=== PATIENT | female | born 1965 | race Caucasian/White ===

== ENCOUNTER 2021-03-21 21:12 | Inpatient (IN) | payer OTHER, SELFPAY ==
--- NOTE | ~2021-03-21 | CT_ITS ---
EXAMINATION: CT HEAD WITHOUT CONTRAST CLINICAL INFORMATION: Headache. Syncope. COMPARISON: CT head March 16, 2015 TECHNIQUE: Contiguous axial imaging was performed from the skull base to vertex without intravenous administration of contrast. Coronal and sagittal reformatted images are performed at CT scanner This CT examination was performed using dose optimization techniques as appropriate, variously including the following: *Automated exposure control *Adjustment of mA and/or kV according to patient size (this includes techniques or standardized protocols for targeted exams where dose is matched to indication/reason for exam; i.e. extremities or head) *Use of iterative reconstruction technique DLP: 578 mGy-cm FINDINGS: There is no evidence of acute intracranial hemorrhage or territorial infarction. No abnormal mass effect or midline shift is seen. Mark to white matter differentiation is well preserved. No extra-axial fluid collections are identified. The ventricles are normal in size. There is no abnormal attenuation within the brain parenchyma. The osseous structures and soft tissues are normal. The mastoid air cells and visualized portions of the paranasal sinuses are well aerated. CT/CT head/brain wo con IMPRESSION: No acute intracranial pathology.
--- NOTE | ~2021-03-21 | CT_ITS ---
EXAM: NONCONTRAST CT OF THE CHEST; NONCONTRAST CT OF THE ABDOMEN AND PELVIS INDICATION: Cough, leukocytosis, vomiting, abdominal pain, elevated white blood cell count and lactic acid, acute kidney injury COMPARISON: None TECHNIQUE: No IV contrast was utilized. Multidetector helical imaging was performed through the chest, abdomen, and pelvis. Coronal and sagittal reformatted images were created at the technologist workstation. DOSE LOWERING TECHNIQUES: This CT examination was performed using dose optimization techniques as appropriate, variously including the following: - Automated exposure control - Adjustment of mA and/or kV according to patient size (this includes techniques or standardized protocols for targeted exams were dose is matched to indication/reason for exam; i.e. extremities or head) - Use of iterative reconstruction technique DLP: 1294 mGy-cm FINDINGS: Chest: No regions of consolidation bilaterally. There is mild dependent atelectasis. No pneumothorax or pleural effusion. Visualized thyroid gland appears grossly unremarkable. No mediastinal lymphadenopathy is seen. Cardiac size is within normal limits; no pericardial effusion. No axillary lymphadenopathy is present. Mild degenerative endplate changes are noted in the thoracic spine. Abdomen/Pelvis: The liver appears mildly enlarged and is homogeneous in attenuation without intrahepatic biliary ductal dilatation. Patient is status post cholecystectomy. The unenhanced spleen, pancreas, and adrenal glands are within normal limits. The unenhanced kidneys are unremarkable without hydronephrosis. No renal or ureteral calculi are present. The urinary bladder is minimally distended and grossly unremarkable. Patient appears status post hysterectomy. Assessment for wall thickening in some segments of the colon is limited due to luminal collapse, though no significant pericolonic stranding is seen to strongly suggest a colitis. Foci of fat along the ascending and transverse colon are suggestive of lipomas. No evidence of bowel obstruction. The appendix is unremarkable. No free fluid or free air is identified. Scattered atherosclerotic calcifications are noted. No retroperitoneal or pelvic lymphadenopathy is seen. Status post right total hip arthroplasty. There is moderate to severe degenerative change of the left hip. Facet arthropathy is present in the lumbar spine. CT/CT abdomen pelvis wo con IMPRESSION: 1. No acute findings identified in the chest/abdomen/pelvis on noncontrast exam. 2. Mild hepatomegaly.
[2021-03-21 21:44] VITALS: BP 112/63; PULSE 91; RESP 16; TEMP 37; O2SAT 98; BMI 27.0
--- NOTE | 2021-03-21 21:50 | PC.NURSE ---
PT VOMITING BILE IN TRIAGE, CALLED OVER BY . WITNESSED PT PRESENT UNRESPONSIVE WITH EYES ROLLED BACK IN HEAD FOR LESS THAN 10 SECONDS. CALLED FOR BED AND ASSISTANCE. PT BROUGHT BACK TO ROOM FULLY ALERT IN WC.
--- NOTE | 2021-03-21 21:56 | ECG_ITS ---
Test Reason : NAUSEA AND VOMITING Blood Pressure : / mmHG Vent. Rate : 083 BPM Atrial Rate : 083 BPM P-R Int : 168 ms QRS Dur : 088 ms QT Int : 390 ms P-R-T Axes : 045 -29 011 degrees QTc Int : 458 ms Normal sinus rhythm Possible Left atrial enlargement Left ventricular hypertrophy Abnormal ECG When compared with ECG of 16-MAR-2015 14:17, No significant change was found Referred By: Dottie Shirley Electronically Signed By:AMOR HICKS MD
[2021-03-21] MEDS: ondansetron HCL 4 MG/2 ML VIAL IVPUSH (22:18)
--- NOTE | 2021-03-21 22:23 | ED_ITS ---
HPI - Nausea/Vomiting/Diarrhea General Chief complaint: Nausea/Vomiting/Diarrhea Stated complaint: VOMITTING Time Seen by Provider: 03/21/21 21:56 Source: patient and family Mode of arrival: ambulatory Limitations: no limitations History of Present Illness HPI Narrative: 55 y/o female with history of asthma, HTN, hypothyroidism, abdominal ulcer s/p cauterization, s/p cholecystectomy, anxiety, s/p ovarian surgery who presents to the ER with nausea, vomiting and abdominal pain that started today. She reports a posterior headache as well. She vomited several times today and had 1 episode of non-bloody diarrhea as well. She denies fever, chills, blood in her vomitus or stool. She denies possibility of food bourne illness. No one else at home is ill. She also reports a mild cough and SOB which she attributes to her chronic asthma. No sputum. She is fully vaccinated against COVID. No urinary symptoms. She reports her abdominal pain is dull, constant and located in her epigastric and central abdomen. It does not radiate and is worse with vomiting. She was vomiting and dry heaving in the waiting room. witnessed brief syncopal episode in the waiting room. She lives in [place] and is here visiting. MD elicited complaint: nausea, vomiting and abdominal pain Onset (ago): hour(s) (8) Description of vomiting: food contents and watery Description of diarrhea: semi-solid Associated nausea: Yes Associated abdominal pain: Yes Location of pain: epigastric and periumbilical Pain consistency: constant Severity: moderate Quality: aching Exacerbating factors: vomiting Relieving factors: none Associated symptoms: cough, headaches, loss of appetite, malaise, nausea/vomiting, syncope, weakness and anxiety Related Data Allergies Allergy/AdvReac Type Severity Reaction Status Date / Time acetaminophen [From PERCOCET] Allergy Unknown DIFFICULTY Verified 03/21/21 23:42 BREATHING oxycodone [From PERCOCET] Allergy Unknown DIFFICULTY Verified 03/21/21 23:42 BREATHING, crawling sensation Review of Systems Review of Systems: Constitutional: No Fever, No Chills ENT/Mouth: No sore throat, No Rhinorrhea, No Swallowing Difficulty Eyes: No Eye Pain, No Swelling, No Redness Cardiovascular: No Chest Pain, + SOB, No Orthopnea, No Edema Respiratory: +Cough, No Sputum, No Wheezing, No dyspnea Gastrointestinal: + Nausea, + Vomiting, + Diarrhea, + abdominal Pain, No Hematochezia, No Melena Genitourinary: No Dysuria, No Urinary Frequency, No Hematuria Musculoskeletal: No joint pain, No Myalgias Skin: No Skin Lesions, No rash Neuro: + Weakness, No Numbness, + Dizziness, + Headache Psych: No Anxiety/Panic, No Depression Heme/Lymph: No Bruising, No Lymphadenopathy Endocrine: No Polyuria, No Polydipsia Gastrointestinal: Gastrointestinal: Reports nausea PMFSH Past Medical History Attestation statement: The following information was validated with the patient. Medical History (Updated 03/22/21 @ 00:15 by TAPAN Jarrell) Asthma Hypertension Social History Social History Advance Directives: No Advance Directives Information Provided: Yes Physical Exam Vital Signs: Vital Signs: Last Vital Signs Temp 98.3 F 03/21/21 23:41 Pulse 74 03/21/21 23:41 Resp 16 03/21/21 23:41 BP 115/58 L 03/21/21 23:41 Pulse Ox 98 03/21/21 23:41 Body Mass Index 27.0 Appearance: Alert, middle aged woman sitting up in bed, dry heaving, diaph oretic. Eyes: Pupils equal, round and reactive to light. ENT: Pharynx normal. Neck: Normal inspection. Neck supple. CVS: Tachycardic, regular rhythm. Pulses normal. Respiratory: No respiratory distress. Breath sounds normal. Abdomen: Soft wtih mild epigastric tenderness, no rebound or guarding, normal +BS x4 Skin: Skin warm with slight diaphoresis. Normal skin color. Normal skin turgor. No rashes. Extremities: No lower extremity edema. Neuro: Oriented X 3. No motor deficit. No sensory deficit. Anxious Course Course Course Narrative: 55 y/o female presenting with acute onset of N/V and abdominal pain that started this afternoon. No fever, chills. She had a brief witnessed syncopal episode in the waiting room, likely vasovagal. She is dry heaving upon assessment. Afebrile on arrival with stable VS. Central abdominal tenderness noted. She is s/p cholecystectomy. Will get labs, EKG and start IVF and Zofran. Will check orthostatic VS after 1L IVF. Reevaluation(s) Reevaluation #1: 10:55 pm - labs resulting with significant leukocytosis of 24.7K, could be reactive from profuse vomiting. Denies marijuana use or ETOH use. Will proceed with CT scans for further evaluation and r/o source of infection. Not tachycardic or febrile at this time. Will add blood cultures and empiric IV Zosyn for intraabdominal coverage. 2nd liter IVF ordered. Reevaluation #2: 11:15 pm - patient has an PASCALE with BUN/Cr 18/2.04 from a normal baseline back in 2014. This is most likely due to dehydration and GI losses. Will continue with IV fluids, awaiting CT scans. Reevaluation #3: 12:10 am - CT scans are unremarkable. No source of infection identifWill contact hospitalist for admission for probable gastroenteritis and PASCALE. 12:44 - spoke with Dr. Palacios who will admit. MDM - Nausea/Vomiting/Diarrhea Differential Diagnosis Differential diagnosis: Likely traveler's diarrhea, food poisoning, gastroenteritis, clostridium difficile infection, drug-induced nausea and vomiting and dehydration Medical Records Attestation: I reviewed the patient's medical records. Lab Data Attestation: I reviewed the patient's lab results. Result diagrams: 03/21/21 22:14 03/21/21 22:14 Labs: Lab Results 03/21/21 03/21/21 03/21/21 Range/Units 22:14 22:14 22:14 WBC 24.7 H (4.8-10.8) X10*3/uL RBC 4.85 (4.20-5.50) X10*6/uL Hgb 15.2 (12.0-16.0) g/dl Hct 44.4 (37-47) % MCV 91.5 (80-98) fL MCH 31.3 (27.0-33.0) pg MCHC 34.2 (31.0-35.0) g/dl RDW 12.8 (11.0-16.0) % Plt Count 331 (160-400) X10*3/uL MPV 9.6 (9.4-12.3) fL Immature Gran % (Auto) 0.5 H (0.0-0.4) % Neut % (Auto) 72.8 (45-73) % Lymph % (Auto) 17.3 L (20-40) % Woods % (Auto) 8.4 (2-11) % Eos % (Auto) 0.6 (0-4) % Baso % (Auto) 0.4 (0-2) % Lymph # (Auto) 4.3 (1.2-4.9) X10*3/uL Woods # (Auto) 2.1 H (0.1-1.2) X10*3/uL Eos # (Auto) 0.2 (0.0-0.4) X10*3/uL Baso # (Auto) 0.1 (0.0-0.2) X10*3/uL Abs Immat Gran (auto) 0.13 H (0.00-0.03) X10*3/uL Absolute Neuts (auto) 18.0 H (2.0-8.3) X10*3/uL Absolute Nucleated RBC 0.000 (0.0-0.012) X10*3/uL Nucleated RBC % (auto) 0.0 (0.0-0.2) /100WBC Sodium 141 (135-145) mmol/L Potassium 3.6 (3.3-5.1) mmol/L Chloride 104 (96-108) mmol/L Carbon Dioxide 21 L (22-29) mmol/L Anion Gap 20 (12-20) BUN 18 H (9-16) mg/dL Creatinine 2.04 H (0.5-1.4) mg/dL Estim Creat Clear Calc 33.9 Estimated GFR 25 Random Glucose 149 H (60-115) mg/dL Lactic Acid 3.4 H* (0.5-2.0) mmol/L Calcium 10.6 H (8.4-10.2) mg/dL Magnesium 2.1 (1.6-2.6) mg/dL Total Bilirubin 1.3 H (0.0-1.0) mg/dL Direct Bilirubin 0.4 (0.0-0.5) mg/dL AST 16 (5-31) U/L ALT 11 (0-31) U/L Alkaline Phosphatase 155 H (39-117) U/L Total Protein 7.7 (6.5-8.0) g/dL Albumin 5.0 (3.5-5.0) g/dL Lipase 92 H (8-78) U/L Urine Color Urine Appearance Urine pH (5.0-8.0) Ur Specific [place] (1.005-1.025) Urine Protein (NEG-TRACE) MG/DL Urine Glucose (UA) (NEG) MG/DL Urine Ketones (NEG) MG/DL Urine Blood (NEG) Urine Nitrite (NEG) Ur Leukocyte Esterase (NEG) Ethyl Alcohol mg/dL COVID-19 (DEIRDRE) (Negative) COVID-19 Clin Com 03/21/21 03/21/21 03/22/21 Range/Units 22:14 22:14 00:28 WBC (4.8-10.8) X10*3/uL RBC (4.20-5.50) X10*6/uL Hgb (12.0-16.0) g/dl Hct (37-47) % MCV (80-98) fL MCH (27.0-33.0) pg MCHC (31.0-35.0) g/dl RDW (11.0-16.0) % Plt Count (160-400) X10*3/uL MPV (9.4-12.3) fL Immature Gran % (Auto) (0.0-0.4) % Neut % (Auto) (45-73) % Lymph % (Auto) (20-40) % Woods % (Auto) (2-11) % Eos % (Auto) (0-4) % Baso % (Auto) (0-2) % Lymph # (Auto) (1.2-4.9) X10*3/uL Woods # (Auto) (0.1-1.2) X10*3/uL Eos # (Auto) (0.0-0.4) X10*3/uL Baso # (Auto) (0.0-0.2) X10*3/uL Abs Immat Gran (auto) (0.00-0.03) X10*3/uL Absolute Neuts (auto) (2.0-8.3) X10*3/uL Absolute Nucleated RBC (0.0-0.012) X10*3/uL Nucleated RBC % (auto) (0.0-0.2) /100WBC Sodium (135-145) mmol/L Potassium (3.3-5.1) mmol/L Chloride (96-108) mmol/L Carbon Dioxide (22-29) mmol/L Anion Gap (12-20) BUN (9-16) mg/dL Creatinine (0.5-1.4) mg/dL Estim Creat Clear Calc Estimated GFR Random Glucose (60-115) mg/dL Lactic Acid (0.5-2.0) mmol/L Calcium (8.4-10.2) mg/dL Magnesium (1.6-2.6) mg/dL Total Bilirubin (0.0-1.0) mg/dL Direct Bilirubin (0.0-0.5) mg/dL AST (5-31) U/L ALT (0-31) U/L Alkaline Phosphatase (39-117) U/L Total Protein (6.5-8.0) g/dL Albumin (3.5-5.0) g/dL Lipase (8-78) U/L Urine Color YELLOW Urine Appearance HAZY Urine pH 6.0 (5.0-8.0) Ur Specific [place] 1.025 (1.005-1.025) Urine Protein 3+ H (NEG-TRACE) MG/DL Urine Glucose (UA) NEG (NEG) MG/DL Urine Ketones NEG (NEG) MG/DL Urine Blood 1+ H (NEG) Urine Nitrite NEG (NEG) Ur Leukocyte Esterase NEG (NEG) Ethyl Alcohol < 10 mg/dL COVID-19 (DEIRDRE) Negative (Negative) COVID-19 Clin Com See Note ECG Data Attestation: I personally reviewed and interpreted this ECG as follows: ECG interpretation date: 03/21/21 ECG interpretation time: 22:41 Interpretation: normal sinus rhythm, HR 83 bpm, WA interval normal, No ST segment elevation or depression Critical Care Time Critical Care Time Critical Care Time: Yes Total Critical Care Time: 42 Attestation: I have personally provided critical care time exclusive of time spent on separately billable procedures. Time includes review of lab data, radio logy results, discussion with consultants, and monitoring for potential decompensation. Intervention performed as documented. Discharge Plan Discharge Clinical Impression: PASCALE (acute kidney injury), Gastroenteritis Syncope Qualifiers: Syncope type: unspecified Qualified Code(s): R55 - Syncope and collapse Patient Disposition: Admitted As Inpatient
[2021-03-21 22:26] LABS: Basophils Absolute Auto 0.1 X10*3/uL (0.0-0.2); Basophils Percent Auto 0.4 % (0-2); Eosinophils Absolute Auto 0.2 X10*3/uL (0.0-0.4); Eosinophils Percent Auto 0.6 % (0-4); Hematocrit 44.4 % (37-47); Hemoglobin 15.2 g/dl (12.0-16.0); Imm Gran Abs Auto 0.13 X10*3/uL (0.00-0.03); Imm Gran Pct Auto 0.5 % (0.0-0.4); Lymphocytes Absolute Auto 4.3 X10*3/uL (1.2-4.9); Lymphocytes Percent Auto 17.3 % (20-40); MANUAL DIFF FLAG NO; Mean Corpuscular HGB Conc 34.2 g/dl (31.0-35.0); Mean Corpuscular Hemoglobin 31.3 pg (27.0-33.0); Mean Corpuscular Volume 91.5 fL (80-98); Mean Platelet Volume 9.6 fL (9.4-12.3); Monocytes Absolute Auto 2.1 X10*3/uL (0.1-1.2); Monocytes Percent Auto 8.4 % (2-11); Neutrophils Percent Auto 72.8 % (45-73); Platelet Count 331 X10*3/uL (160-400); Red Blood Count 4.85 X10*6/uL (4.20-5.50); Red Cell Distribution Width 12.8 % (11.0-16.0); SCAN SMEAR FLAG 1; White Blood Count 24.7 X10*3/uL (4.8-10.8)
[2021-03-21 22:38] LABS: COVID-19 Test Negative (Negative)
[2021-03-21 22:46] LABS: Lactic Acid 3.4 mmol/L (0.5-2.0)
[2021-03-21] MEDS: 0.9 % Sodium Chloride 1,000 ML 999 ML IVCONT ×2 (22:46→23:42)
[2021-03-21 22:54] LABS: Alanine Aminotransferase 11 U/L (0-31); Alkaline Phosphatase 155 U/L (39-117); Anion Gap 20 (12-20); Aspartate Amino Transferase 16 U/L (5-31); Bilirubin Direct 0.4 mg/dL (0.0-0.5); Bilirubin Total 1.3 mg/dL (0.0-1.0); Blood Urea Nitrogen 18 mg/dL (9-16); Calcium 10.6 mg/dL (8.4-10.2); Carbon Dioxide 21 mmol/L (22-29); Chloride 104 mmol/L (96-108); Creatinine Clr Calc Pharmacy 33.9; Estimated Glomerular Filt Rate 25; Glucose Random 149 mg/dL (60-115); Lipase 92 U/L (8-78); Magnesium 2.1 mg/dL (1.6-2.6); Potassium 3.6 mmol/L (3.3-5.1); Sodium 141 mmol/L (135-145); Total Protein 7.7 g/dL (6.5-8.0)
[2021-03-21 22:55] LABS: Ethanol < 10 mg/dL
[2021-03-21 23:41] VITALS: BP 115/58; PULSE 74; RESP 16; TEMP 36.8; O2SAT 98
--- NOTE | 2021-03-21 23:58 | PC.NURSE ---
zosyn stopped when discovery that cultures were not ordered or drawn. provider placed order. will rstart zosyn after cultures are drawn.
--- NOTE | 2021-03-22 00:02 | PC.NURSE ---
CARE AND REPORT HANDED OVER FROM JUSTYNA AT 23:00
[2021-03-22] MEDS: Piperacillin Sodium/Tazobactam 3.375 GM in 0.9 % Sodium Chloride 50 ML IV ×2 (00:14→06:54)
[2021-03-22] MEDS: Morphine Sulfate 4 MG/ML CARTRIDGE IVPUSH (00:14)
[2021-03-22 00:25] LABS: Reflex Lactate? Lactic Acid Added
[2021-03-22 00:37] LABS: Glucose Urine UA NEG (NEG); Leukocyte Esterase Urine NEG (NEG); Nitrite Urine NEG (NEG); Specific Gravity - Urine 1.025 (1.005-1.025); Urine Blood 1+ (NEG); Urine Ketones NEG (NEG); Urine Protein 3+ MG/DL (NEG-TRACE)
[2021-03-22 00:38] LABS: Appearance Urine HAZY; Color Urine YELLOW
[2021-03-22 00:53] LABS: Bacteria Urine TRACE /LPF; Mucus Urine 2+ /LPF; Squamous Epithelial Cell Urine 3+ /LPF; WBC Urine 0 /HPF (0-4)
[2021-03-22 01:14] LABS: MANUAL DIFF FLAG NO
[2021-03-22 01:15] LABS: Basophils Absolute Auto 0.1 X10*3/uL (0.0-0.2); Basophils Percent Auto 0.5 % (0-2); Eosinophils Absolute Auto 0.1 X10*3/uL (0.0-0.4); Eosinophils Percent Auto 0.5 % (0-4); Hematocrit 38.7 % (37-47); Imm Gran Abs Auto 0.06 X10*3/uL (0.00-0.03); Imm Gran Pct Auto 0.5 % (0.0-0.4); Lymphocytes Absolute Auto 1.8 X10*3/uL (1.2-4.9); Lymphocytes Percent Auto 13.7 % (20-40); Mean Corpuscular HGB Conc 33.6 g/dl (31.0-35.0); Mean Corpuscular Hemoglobin 31.2 pg (27.0-33.0); Mean Corpuscular Volume 92.8 fL (80-98); Mean Platelet Volume 9.7 fL (9.4-12.3); Monocytes Absolute Auto 0.9 X10*3/uL (0.1-1.2); Monocytes Percent Auto 6.5 % (2-11); Neutrophils Absolute Auto 10.5 X10*3/uL (2.0-8.3); Neutrophils Percent Auto 78.3 % (45-73); Platelet Count 264 X10*3/uL (160-400); Red Blood Count 4.17 X10*6/uL (4.20-5.50); Red Cell Distribution Width 12.9 % (11.0-16.0); White Blood Count 13.3 X10*3/uL (4.8-10.8)
[2021-03-22 01:17] LABS: ~Lactic Acid-LAB USE ONLY 2.4 mmol/L (0.5-2.0)
[2021-03-22 01:43] LABS: Anion Gap 17 (12-20); Blood Urea Nitrogen 17 mg/dL (9-16); Calcium 8.9 mg/dL (8.4-10.2); Carbon Dioxide 20 mmol/L (22-29); Chloride 108 mmol/L (96-108); Creatinine Clr Calc Pharmacy 41.7; Estimated Glomerular Filt Rate 32; Glucose Random 157 mg/dL (60-115); Potassium 3.8 mmol/L (3.3-5.1); Sodium 141 mmol/L (135-145)
[2021-03-22 01:49] LABS: Troponin-I High Sensitivity 14.9 ng/L (<3.5-17.0)
--- NOTE | 2021-03-22 02:38 | P.HPHOSP_ITS ---
History of Present Illness Date of Service: 03/22/21 Chief Complaint: Nausea and vomiting 55-year-old female with a past medical history of hypertension, hyperlipidemia, hypothyroidism presented to the hospital with a chief complaint of nausea vomiting. Patient reports that her symptoms started this afternoon; follow-up but she had multiple episodes profuse vomiting. Denies any blood in the vomitus. Had 1 episode of loose stool. Complains of epigastric discomfort. Denies any fever chills cough. Mentioned that she had dizziness. Subsequently came to the ER for further evaluation. While waiting in the ER patient had a brief episode of syncope; per patient's patient rolled her eyes to the back and lost consciousness for about 15 seconds; denies any fall. Also mentioned that patient was mildly confused after she came back. Denies any numbness or tingling. Patient denies taking excessive [id number] pain medications; denies eating old or stale food. Patient reports that she had history of cholecystectomy Review of all other systems is negative except mentioned above ER course: Per ER team patient noted to have epigastric tenderness, CT head and CT abdomen showed no acute findings, exam was nonfocal, lab showed lactic acidosis, leukocytosis, elevated creatinine; patient qualified for sepsis criteria; given a dose of Zosyn. Admitted to the hospital for further management. [facility] Medical History (Updated 03/22/21 @ 00:15 by TAPAN Jarrell) Asthma Hypertension Social History Household Members: Spouse Housing: House Patient Tobacco Use Status: Current everyday Tobacco user Tobacco use type: Cigarette Smoked in Last 30 Days: Yes Use of substances other than those prescribed or required for medical reasons: No Currently Displaying Signs/Symptoms of Drug Intoxication Withdrawal: No Any prior treatment program specific to substance use: No Have you been hit, kicked, punched, or otherwise hurt by someone within the past year? If so, by whom?: No Do you feel safe in your current relationship?: No Is there a partner from a previous relationship who is making you feel unsafe now?: No Are you made to feel afraid or neglected: No Advance Directives: No Advance Directives Information Provided: Yes Do you have thoughts of harming others: None Do you have a plan to hurt others: No Plan Patient : No : No Poor oral hygiene: No Meds Allergies Allergy/AdvReac Type Severity Reaction Status Date / Time acetaminophen [From PERCOCET] Allergy Unknown DIFFICULTY Verified 03/21/21 23:42 BREATHING oxycodone [From PERCOCET] Allergy Unknown DIFFICULTY Verified 03/21/21 23:42 BREATHING, crawling sensation Active Medications: Current Medications Generic Name Dose Route Start Last Admin Trade Name Freq PRN Reason Stop Dose Admin Acetaminophen 650 mg 03/22/21 00:45 Acetaminophen 325 Mg Tablet PO Q6H PRN Pain, Mild (Pain Scale 1-3) Heparin Sodium (Porcine) 5,000 unit 03/22/21 00:45 Heparin Sodium,Porcine 5,000 Unit/Ml Vial SUBCUT Q8H JEANA Dextrose/Sodium Chloride 1,000 mls @ 100 mls/hr 03/22/21 00:45 D51/2ns IVCONT .Q10H JEANA Piperacillin Sod/Tazobactam 50 mls @ 100 mls/hr 03/22/21 05:00 Sod 3.375 gm/ Sodium Chloride IV Q6H JEANA Melatonin 6 mg 03/22/21 00:45 Melatonin 3 Mg Tablet PO BEDTIME PRN Insomnia Pharmacy Consult 1 each 03/21/21 22:58 Consult Rx Perform Med Rec MISCELLANE ONCE PRN Consult order Sodium Chloride 3 ml 03/22/21 08:00 0.9 % Sodium Chloride Flush 3 Ml Syringe IVFLUSH [facility] Home Medications Medication Instructions Recorded Confirmed Last Taken Type Flovent HFA 2 puff INHALATION BID 03/22/21 03/22/21 Unknown History fluticasone propionate 1 - 2 spray INTRANASAL DAILY 03/22/21 03/22/21 Unknown History levothyroxine 1 tab PO DAILY 03/22/21 03/22/21 03/21/21 History lisinopril 1 tab PO DAILY 03/22/21 03/22/21 03/21/21 History rosuvastatin 1 tab PO DAILY 03/22/21 03/22/21 03/21/21 History Physical Exam Vital Signs and Narrative: Vital Signs: Last Vital Signs Temp 98.3 F 03/21/21 23:41 Pulse 74 03/21/21 23:41 Resp 16 03/21/21 23:41 BP 115/58 L 03/21/21 23:41 Pulse Ox 98 03/21/21 23:41 Body Mass Index 27.0 Gen: Appears be in no acute distress HEENT: NCAT, Moist mucosa. Pulmonary: Vesicular breath sounds, fair air entry CVS: Normal S1-S2 Abdomen: BS+, Soft, tender in the epigastrium; no guarding no rigidity Extremities: Warm well perfused Neuro: Alert and awake. Results Labs CBC and Chem 7: 03/22/21 07:41 03/22/21 07:41 Labs: Laboratory Results - last 24 hr 03/21/21 03/21/21 03/21/21 22:14 22:14 22:14 MCV 91.5 MCH 31.3 MCHC 34.2 RDW 12.8 Plt Count 331 MPV 9.6 Immature Gran % (Auto) 0.5 H Neut % (Auto) 72.8 Lymph % (Auto) 17.3 L [place] % (Auto) 8.4 Eos % (Auto) 0.6 Baso % (Auto) 0.4 Lymph # (Auto) 4.3 [place] # (Auto) 2.1 H Eos # (Auto) 0.2 Baso # (Auto) 0.1 Abs Immat Gran (auto) 0.13 H Absolute Neuts (auto) 18.0 H Absolute Nucleated RBC 0.000 Nucleated RBC % (auto) 0.0 Anion Gap 20 Estim Creat Clear Calc 33.9 Estimated GFR 25 Random Glucose 149 H Lactic Acid 3.4 H* Lactic Acid Fup @ 2Hr Calcium 10.6 H Magnesium 2.1 Total Bilirubin 1.3 H Direct Bilirubin 0.4 AST 16 ALT 11 Alkaline Phosphatase 155 H Troponin I High Sens Total Protein 7.7 Albumin 5.0 Lipase 92 H Urine Color Urine Appearance Urine pH Ur Specific [place] Urine Protein Urine Glucose (UA) Urine Ketones Urine Blood Urine Nitrite Ur Leukocyte Esterase Urine RBC Urine WBC Ur Squamous Epith Cells Urine Bacteria Other Casts Urine Mucus Ethyl Alcohol COVID-19 (DEIRDRE) COVID-19 Clin Com 03/21/21 03/21/21 03/22/21 22:14 22:14 00:28 MCV MCH MCHC RDW Plt Count MPV Immature Gran % (Auto) Neut % (Auto) Lymph % (Auto) [place] % (Auto) Eos % (Auto) Baso % (Auto) Lymph # (Auto) [place] # (Auto) Eos # (Auto) Baso # (Auto) Abs Immat Gran (auto) Absolute Neuts (auto) Absolute Nucleated RBC Nucleated RBC % (auto) Anion Gap Estim Creat Clear Calc Estimated GFR Random Glucose Lactic Acid Lactic Acid Fup @ 2Hr Calcium Magnesium Total Bilirubin Direct Bilirubin AST ALT Alkaline Phosphatase Troponin I High Sens Total Protein Albumin Lipase Urine Color YELLOW Urine Appearance HAZY Urine pH 6.0 Ur Specific [place] 1.025 Urine Protein 3+ H Urine Glucose (UA) NEG Urine Ketones NEG Urine Blood 1+ H Urine Nitrite NEG Ur Leukocyte Esterase NEG Urine RBC 1-4 Urine WBC 0 Ur Squamous Epith Cells 3+ Urine Bacteria TRACE Other Casts 1-4 Urine Mucus 2+ Ethyl Alcohol < 10 COVID-19 (DEIRDRE) Negative COVID-19 Clin Com See Note 03/22/21 03/22/21 03/22/21 00:51 01:08 01:08 MCV 92.8 MCH 31.2 MCHC 33.6 RDW 12.9 Plt Count 264 MPV 9.7 Immature Gran % (Auto) 0.5 H Neut % (Auto) 78.3 H Lymph % (Auto) 13.7 L [place] % (Auto) 6.5 Eos % (Auto) 0.5 Baso % (Auto) 0.5 Lymph # (Auto) 1.8 [place] # (Auto) 0.9 Eos # (Auto) 0.1 Baso # (Auto) 0.1 Abs Immat Gran (auto) 0.06 H Absolute Neuts (auto) 10.5 H Absolute Nucleated RBC 0.000 Nucleated RBC % (auto) 0.0 Anion Gap 17 Estim Creat Clear Calc 41.7 Estimated GFR 32 Random Glucose 157 H Lactic Acid Lactic Acid Fup @ 2Hr 2.4 H* Calcium 8.9 D Magnesium Total Bilirubin Direct Bilirubin AST ALT Alkaline Phosphatase Troponin I High Sens Total Protein Albumin Lipase Urine Color Urine Appearance Urine pH Ur Specific [place] Urine Protein Urine Glucose (UA) Urine Ketones Urine Blood Urine Nitrite Ur Leukocyte Esterase Urine RBC Urine WBC Ur Squamous Epith Cells Urine Bacteria Other Casts Urine Mucus Ethyl Alcohol COVID-19 (DEIRDRE) COVID-19 Clin Com 03/22/21 01:08 MCV MCH MCHC RDW Plt Count MPV Immature Gran % (Auto) Neut % (Auto) Lymph % (Auto) [place] % (Auto) Eos % (Auto) Baso % (Auto) Lymph # (Auto) [place] # (Auto) Eos # (Auto) Baso # (Auto) Abs Immat Gran (auto) Absolute Neuts (auto) Absolute Nucleated RBC Nucleated RBC % (auto) Anion Gap Estim Creat Clear Calc Estimated GFR Random Glucose Lactic Acid Lactic Acid Fup @ 2Hr Calcium Magnesium Total Bilirubin Direct Bilirubin AST ALT Alkaline Phosphatase Troponin I High Sens 14.9 Total Protein Albumin Lipase Urine Color Urine Appearance Urine pH Ur Specific [place] Urine Protein Urine Glucose (UA) Urine Ketones Urine Blood Urine Nitrite Ur Leukocyte Esterase Urine RBC Urine WBC Ur Squamous Epith Cells Urine Bacteria Other Casts Urine Mucus Ethyl Alcohol COVID-19 (DEIRDRE) COVID-19 Clin Com Imaging Radiologist's Impressions: Impressions Abdomen/Pelvis CT 03/21/21 22:58 IMPRESSION: 1. No acute findings identified in the chest/abdomen/pelvis on noncontrast exam. 2. Mild hepatomegaly. Chest CT 03/21/21 23:00 IMPRESSION: 1. No acute findings identified in the chest/abdomen/pelvis on noncontrast exam. 2. Mild hepatomegaly. Head CT 03/21/21 23:07 IMPRESSION: No acute intracranial pathology. Assessment and Plan (1) PASCALE (acute kidney injury): Status: Acute 55-year-old female with a past medical history of hypertension, hyper lipidemia, hypothyroidism presented to the hospital with a chief complaint of nausea/vomiting. Noted to have PASCALE and possible gastroenteritis. Patient also had an episode of syncope. Admitted for further management. Syncope: Likely vasovagal. Patient was briefly postictal. Exam nonfocal. CT head showed no acute findings. EKG nonischemic. Normal sinus rhythm. Telemetry cycle cardiac enzymes echocardiogram Orthostatic vitals PASCALE: Likely prerenal in the setting of multiple episodes of vomiting. IV hydration. Avoid nephrotoxins. Hold home lisinopril. Nausea/vomiting/abdominal discomfort: Patient reports remote history of peptic ulcer disease. Denies any blood in the vomitus. Likely gastroenteritis. Supportive care. IV fluids. Advanced diet as tolerated Patient qualified for sepsis criteria, received empiric Zosyn. Will continue until the cultures are back. Lactic acidosis: IV fluids Hypertension: Patient's blood pressure on the soft side. Hold home antihypertensives. History of hypothyroidism: Continue levothyroxine DVT prophylaxis: [facility] Code status: Full code Quality Stroke Does the patient have a stroke diagnosis?: No VTE Prior VTE?: No VTE Risk Level:: Medical - moderate - high VTE Device Contraindication: Treatment Not Indicated VTE Drug Contraindication: N/A - Med Ordered
[2021-03-22 02:56] LABS: Reflex Lactate? 2 Y
[2021-03-22 02:57] VITALS: BP 105/56; PULSE 61; RESP 16; O2SAT 96
[2021-03-22] MEDS: Dextrose 5 % and 0.45 % NaCl 1,000 ML 100 ML IVCONT ×3 (02:58→21:57)
[2021-03-22 02:59] LABS: Amphetamine Screen Urine Not Detected (Not Detect); Barbiturates, Urine Not Detected (Not Detect); Benzodiazepines Screen Urine Not Detected (Not Detect); Cannabinoid Screen Urine POSITIVE (Not Detect); Cocaine Screen Urine Not Detected (Not Detect); Opiate Screen Urine Not Detected (Not Detect); Phencyclidine Screen Urine Not Detected (Not Detect)
[2021-03-22] MEDS: Heparin Sodium,Porcine 5,000 UNIT/ML VIAL 5000 UNIT SUBCUT ×3 (03:25→16:54)
[2021-03-22 03:43] LABS: ~Lactic Acid-LAB USE ONLY 2.7 mmol/L (0.5-2.0)
--- NOTE | 2021-03-22 07:13 | PHA.MEDREC ---
Pharmacy Consult ? Medication Reconciliation Pharmacy has completed the medication reconciliation.
[2021-03-22 07:30] VITALS: BP 115/52; PULSE 53; RESP 18; O2SAT 98
[2021-03-22 07:47] LABS: MANUAL DIFF FLAG NO
[2021-03-22 07:49] LABS: Basophils Absolute Auto 0.1 X10*3/uL (0.0-0.2); Basophils Percent Auto 0.6 % (0-2); Eosinophils Absolute Auto 0.1 X10*3/uL (0.0-0.4); Eosinophils Percent Auto 0.7 % (0-4); Hematocrit 37.8 % (37-47); Hemoglobin 12.4 g/dl (12.0-16.0); Imm Gran Abs Auto 0.04 X10*3/uL (0.00-0.03); Imm Gran Pct Auto 0.4 % (0.0-0.4); Lymphocytes Absolute Auto 3.4 X10*3/uL (1.2-4.9); Lymphocytes Percent Auto 34.7 % (20-40); Mean Corpuscular HGB Conc 32.8 g/dl (31.0-35.0); Mean Corpuscular Hemoglobin 30.7 pg (27.0-33.0); Mean Corpuscular Volume 93.6 fL (80-98); Mean Platelet Volume 9.3 fL (9.4-12.3); Monocytes Absolute Auto 0.9 X10*3/uL (0.1-1.2); Monocytes Percent Auto 9.3 % (2-11); Neutrophils Absolute Auto 5.2 X10*3/uL (2.0-8.3); Neutrophils Percent Auto 54.3 % (45-73); Platelet Count 261 X10*3/uL (160-400); Red Blood Count 4.04 X10*6/uL (4.20-5.50); Red Cell Distribution Width 12.9 % (11.0-16.0); White Blood Count 9.7 X10*3/uL (4.8-10.8)
[2021-03-22] MEDS: Acetaminophen 325 MG TABLET 650 MG PO ×3 (08:13→22:02)
[2021-03-22 08:19] LABS: Anion Gap 12 (12-20); Blood Urea Nitrogen 17 mg/dL (9-16); Calcium 8.7 mg/dL (8.4-10.2); Carbon Dioxide 25 mmol/L (22-29); Chloride 107 mmol/L (96-108); Creatinine Clr Calc Pharmacy 49.7; Estimated Glomerular Filt Rate 39; Glucose Random 118 mg/dL (60-115); Potassium 3.9 mmol/L (3.3-5.1); Sodium 140 mmol/L (135-145)
[2021-03-22] MEDS: 0.9 % Sodium Chloride Flush 3 ML SYRINGE IVFLUSH (08:19)
--- NOTE | 2021-03-22 14:31 | P.DS_ITS ---
DS: Providers Provider Date of Service: 03/22/21 Date of admission: 03/22/21 00:45 Primary care physician: Unknown Physician DS: Diagnosis Discharge Diagnosis (1) PASCALE (acute kidney injury): Status: Acute (2) Syncope: Status: Acute (3) Gastroenteritis: Status: Acute DS: Medications Discharge Medications Home Medications: Home Medications Medication Instructions Recorded Confirmed Flovent HFA 2 puff INHALATION BID 03/22/21 03/22/21 fluticasone propionate 1 - 2 spray INTRANASAL DAILY 03/22/21 03/22/21 levothyroxine 1 tab PO DAILY 03/22/21 03/22/21 lisinopril 1 tab PO DAILY 03/22/21 03/22/21 rosuvastatin 1 tab PO DAILY 03/22/21 03/22/21 DS: Summary Hospital Course Hospital Course: She was admitted for acute kidney injury secondary to dehydration from nausea vomiting from gastroenteritis. She was noted to have leukocytosis and tachycardia initially thought to be due to sepsis she was given Zosyn, although this likely was dehydration as patient significantly improved with hydration. Her renal function, leukocytosis, and symptoms improved quicker than expected creatinine from 2.04 to 1.39 at discharge, was able to tolerate solid diet. patient will be discharged home, enouraged to continue to orally hydrate Time Spent with Patient Time attestation: Total time spent providing and/or coordinating discharge services: Discharge coordination time: Greater than 30 minutes Quality: Stroke Does the patient have a stroke diagnosis?: No Physical Exam Vital Signs: Vital Signs: Last Vital Signs Temp 98.3 F 03/21/21 23:41 Pulse 53 03/22/21 07:30 Resp 18 03/22/21 07:30 BP 115/52 L 03/22/21 07:30 Pulse Ox 98 03/22/21 07:30 Body Mass Index 27.0 General: AO X 3, no acute distress Resp: CTA bilateral CVS: S1,S2,RRR GI: soft, non tender, non distended Neuro: motor grossly intact Psych: appropriate affect DS: Data Data Completed and Pending Labs on day of discharge: Laboratory Results - last 24 hr 03/21/21 03/21/21 03/21/21 22:14 22:14 22:14 WBC 24.7 H RBC 4.85 Hgb 15.2 Hct 44.4 MCV 91.5 MCH 31.3 MCHC 34.2 RDW 12.8 Plt Count 331 MPV 9.6 Immature Gran % (Auto) 0.5 H Neut % (Auto) 72.8 Lymph % (Auto) 17.3 L [place] % (Auto) 8.4 Eos % (Auto) 0.6 Baso % (Auto) 0.4 Lymph # (Auto) 4.3 [place] # (Auto) 2.1 H Eos # (Auto) 0.2 Baso # (Auto) 0.1 Abs Immat Gran (auto) 0.13 H Absolute Neuts (auto) 18.0 H Absolute Nucleated RBC 0.000 Nucleated RBC % (auto) 0.0 Sodium 141 Potassium 3.6 Chloride 104 Carbon Dioxide 21 L Anion Gap 20 BUN 18 H Creatinine 2.04 H Estim Creat Clear Calc 33.9 Estimated GFR 25 Random Glucose 149 H Lactic Acid 3.4 H* Lactic Acid Fup @ 2Hr Lactic Acid Fup @ 4Hr Calcium 10.6 H Magnesium 2.1 Total Bilirubin 1.3 H Direct Bilirubin 0.4 AST 16 ALT 11 Alkaline Phosphatase 155 H Troponin I High Sens Total Protein 7.7 Albumin 5.0 Lipase 92 H Urine Color Urine Appearance Urine pH Ur Specific [place] Urine Protein Urine Glucose (UA) Urine Ketones Urine Blood Urine Nitrite Ur Leukocyte Esterase Urine RBC Urine WBC Ur Squamous Epith Cells Urine Bacteria Other Casts Urine Mucus Urine Opiates Screen Ur Barbiturates Screen Ur Phencyclidine Scrn Ur Amphetamines Screen U Benzodiazepines Scrn Urine Cocaine Screen U Marijuana (THC) Screen Ethyl Alcohol COVID-19 (DEIRDRE) COVID-19 Clin Com 03/21/21 03/21/21 03/22/21 22:14 22:14 00:27 WBC RBC Hgb Hct MCV MCH MCHC RDW Plt Count MPV Immature Gran % (Auto) Neut % (Auto) Lymph % (Auto) [place] % (Auto) Eos % (Auto) Baso % (Auto) Lymph # (Auto) [place] # (Auto) Eos # (Auto) Baso # (Auto) Abs Immat Gran (auto) Absolute Neuts (auto) Absolute Nucleated RBC Nucleated RBC % (auto) Sodium Potassium Chloride Carbon Dioxide Anion Gap BUN Creatinine Estim Creat Clear Calc Estimated GFR Random Glucose Lactic Acid Lactic Acid Fup @ 2Hr Lactic Acid Fup @ 4Hr Calcium Magnesium Total Bilirubin Direct Bilirubin AST ALT Alkaline Phosphatase Troponin I High Sens Total Protein Albumin Lipase Urine Color Urine Appearance Urine pH Ur Specific [place] Urine Protein Urine Glucose (UA) Urine Ketones Urine Blood Urine Nitrite Ur Leukocyte Esterase Urine RBC Urine WBC Ur Squamous Epith Cells Urine Bacteria Other Casts Urine Mucus Urine Opiates Screen Not Detected Ur Barbiturates Screen Not Detected Ur Phencyclidine Scrn Not Detected Ur Amphetamines Screen Not Detected U Benzodiazepines Scrn Not Detected Urine Cocaine Screen Not Detected U Marijuana (THC) Screen POSITIVE H Ethyl Alcohol < 10 COVID-19 (DEIRDRE) Negative COVID-19 Clin Com See Note 03/22/21 03/22/21 03/22/21 00:28 00:51 01:08 WBC 13.3 H RBC 4.17 L Hgb 13.0 Hct 38.7 MCV 92.8 MCH 31.2 MCHC 33.6 RDW 12.9 Plt Count 264 MPV 9.7 Immature Gran % (Auto) 0.5 H Neut % (Auto) 78.3 H Lymph % (Auto) 13.7 L [place] % (Auto) 6.5 Eos % (Auto) 0.5 Baso % (Auto) 0.5 Lymph # (Auto) 1.8 [place] # (Auto) 0.9 Eos # (Auto) 0.1 Baso # (Auto) 0.1 Abs Immat Gran (auto) 0.06 H Absolute Neuts (auto) 10.5 H Absolute Nucleated RBC 0.000 Nucleated RBC % (auto) 0.0 Sodium Potassium Chloride Carbon Dioxide Anion Gap BUN Creatinine Estim Creat Clear Calc Estimated GFR Random Glucose Lactic Acid Lactic Acid Fup @ 2Hr 2.4 H* Lactic Acid Fup @ 4Hr Calcium Magnesium Total Bilirubin Direct Bilirubin AST ALT Alkaline Phosphatase Troponin I High Sens Total Protein Albumin Lipase Urine Color YELLOW Urine Appearance HAZY Urine pH 6.0 Ur Specific [place] 1.025 Urine Protein 3+ H Urine Glucose (UA) NEG Urine Ketones NEG Urine Blood 1+ H Urine Nitrite NEG Ur Leukocyte Esterase NEG Urine RBC 1-4 Urine WBC 0 Ur Squamous Epith Cells 3+ Urine Bacteria TRACE Other Casts 1-4 Urine Mucus 2+ Urine Opiates Screen Ur Barbiturates Screen Ur Phencyclidine Scrn Ur Amphetamines Screen U Benzodiazepines Scrn Urine Cocaine Screen U Marijuana (THC) Screen Ethyl Alcohol COVID-19 (DEIRDRE) COVID-19 Clin Com 03/22/21 03/22/21 03/22/21 01:08 01:08 03:05 WBC RBC Hgb Hct MCV MCH MCHC RDW Plt Count MPV Immature Gran % (Auto) Neut % (Auto) Lymph % (Auto) [place] % (Auto) Eos % (Auto) Baso % (Auto) Lymph # (Auto) [place] # (Auto) Eos # (Auto) Baso # (Auto) Abs Immat Gran (auto) Absolute Neuts (auto) Absolute Nucleated RBC Nucleated RBC % (auto) Sodium 141 Potassium 3.8 Chloride 108 Carbon Dioxide 20 L Anion Gap 17 BUN 17 H Creatinine 1.66 H Estim Creat Clear Calc 41.7 Estimated GFR 32 Random Glucose 157 H Lactic Acid Lactic Acid Fup @ 2Hr Lactic Acid Fup @ 4Hr 2.7 H* Calcium 8.9 D Magnesium Total Bilirubin Direct Bilirubin AST ALT Alkaline Phosphatase Troponin I High Sens 14.9 Total Protein Albumin Lipase Urine Color Urine Appearance Urine pH Ur Specific [place] Urine Protein Urine Glucose (UA) Urine Ketones Urine Blood Urine Nitrite Ur Leukocyte Esterase Urine RBC Urine WBC Ur Squamous Epith Cells Urine Bacteria Other Casts Urine Mucus Urine Opiates Screen Ur Barbiturates Screen Ur Phencyclidine Scrn Ur Amphetamines Screen U Benzodiazepines Scrn Urine Cocaine Screen U Marijuana (THC) Screen Ethyl Alcohol COVID-19 (DEIRDRE) COVID-19 Clin Com 03/22/21 03/22/21 07:41 07:41 WBC 9.7 RBC 4.04 L Hgb 12.4 Hct 37.8 MCV 93.6 MCH 30.7 MCHC 32.8 RDW 12.9 Plt Count 261 MPV 9.3 L Immature Gran % (Auto) 0.4 Neut % (Auto) 54.3 Lymph % (Auto) 34.7 [place] % (Auto) 9.3 Eos % (Auto) 0.7 Baso % (Auto) 0.6 Lymph # (Auto) 3.4 [place] # (Auto) 0.9 Eos # (Auto) 0.1 Baso # (Auto) 0.1 Abs Immat Gran (auto) 0.04 H Absolute Neuts (auto) 5.2 Absolute Nucleated RBC 0.000 Nucleated RBC % (auto) 0.0 Sodium 140 Potassium 3.9 Chloride 107 Carbon Dioxide 25 Anion Gap 12 BUN 17 H Creatinine 1.39 Estim Creat Clear Calc 49.7 Estimated GFR 39 Random Glucose 118 H Lactic Acid Lactic Acid Fup @ 2Hr Lactic Acid Fup @ 4Hr Calcium 8.7 Magnesium Total Bilirubin Direct Bilirubin AST ALT Alkaline Phosphatase Troponin I High Sens Total Protein Albumin Lipase Urine Color Urine Appearance Urine pH Ur Specific [place] Urine Protein Urine Glucose (UA) Urine Ketones Urine Blood Urine Nitrite Ur Leukocyte Esterase Urine RBC Urine WBC Ur Squamous Epith Cells Urine Bacteria Other Casts Urine Mucus Urine Opiates Screen Ur Barbiturates Screen Ur Phencyclidine Scrn Ur Amphetamines Screen U Benzodiazepines Scrn Urine Cocaine Screen U Marijuana (THC) Screen Ethyl Alcohol COVID-19 (DEIRDRE) COVID-19 Clin [facility] Discharge Plan Discharge Patient Disposition: Home, Self-Care Discharge Diagnosis: pascale Referrals: Physician,Unknown [Primary Care Provider] - 1 Week Discharge Medications: Continued lisinopril 20 mg tablet 1 tab PO DAILY RF: 0 Flovent HFA 44 mcg/actuation HFA aerosol inhaler 2 puff inhalation BID RF: 0 fluticasone propionate 50 mcg/actuation spray,suspension 1 - 2 spray intranasal DAILY RF: 0 rosuvastatin 40 mg tablet 1 tab PO DAILY RF: 0 levothyroxine 125 mcg tablet 1 tab PO DAILY RF: 0 Discharge Orders: Discharge Order (Routine); Ordered 03/22/21 Ordered By: Eduard Santoyo Diet: advance to usual diet Activity on Discharge: As tolerated Stand Alone Forms: Patient Portal Discharge page Care Plan Goals: recovery Health Concerns: pascale, gastroenteritis Plan of Treatment: continue oral hydration Assessment: see above
--- NOTE | 2021-03-22 15:05 | PC.NURSE ---
per hospitalist d/c cancelled at this time.
[2021-03-22 16:00] VITALS: BP 161/72; PULSE 57; RESP 14; TEMP 36.8; O2SAT 98
[2021-03-22] MEDS: Morphine Sulfate 2 MG/ML CARTRIDGE IVPUSH (16:50)
[2021-03-22 19:31] VITALS: BP 158/72; PULSE 59; RESP 14; TEMP 37.1; O2SAT 95
[2021-03-22] MEDS: Melatonin 3 MG TABLET 6 MG PO (22:02)
[2021-03-22 23:56] VITALS: BP 117/57; PULSE 65; RESP 18; TEMP 36.9; O2SAT 96
[2021-03-23] VITALS (9 sets, daily range): BP systolic 130–178; BP diastolic 74–90; PULSE 60–99; RESP 16–18; TEMP 36.6–37.2; O2SAT 95–98
[2021-03-23] MEDS: Heparin Sodium,Porcine 5,000 UNIT/ML VIAL 5000 UNIT SUBCUT ×4 (00:31→22:35)
[2021-03-23] MEDS: 0.9 % Sodium Chloride Flush 3 ML SYRINGE IVFLUSH ×2 (00:31→20:04)
[2021-03-23] MEDS: Levothyroxine Sodium 125 MCG TABLET PO (05:55)
[2021-03-23 07:20] LABS: Hematocrit 38.4 % (37-47); Hemoglobin 12.6 g/dl (12.0-16.0); Mean Corpuscular HGB Conc 32.8 g/dl (31.0-35.0); Mean Corpuscular Hemoglobin 30.4 pg (27.0-33.0); Mean Corpuscular Volume 92.8 fL (80-98); Mean Platelet Volume 10.1 fL (9.4-12.3); Platelet Count 252 X10*3/uL (160-400); Red Blood Count 4.14 X10*6/uL (4.20-5.50); Red Cell Distribution Width 12.6 % (11.0-16.0); White Blood Count 7.2 X10*3/uL (4.8-10.8)
[2021-03-23 08:22] LABS: Anion Gap 13 (12-20); Blood Urea Nitrogen 10 mg/dL (9-16); Calcium 9.4 mg/dL (8.4-10.2); Carbon Dioxide 24 mmol/L (22-29); Chloride 109 mmol/L (96-108); Creatinine Clr Calc Pharmacy 74.4; Estimated Glomerular Filt Rate > 60; Glucose Fasting 138 mg/dL (60-99); Potassium 3.9 mmol/L (3.3-5.1); Sodium 142 mmol/L (135-145)
--- NOTE | 2021-03-23 08:30 | CA_ITS ---
Transthoracic Echocardiogram Patient (Last, First, Middle): Lynn Roberts, Gender: Female Date of : 1965 Age: 55 Procedure Date: 03/23/2021 Procedure Type: Transthoracic Echocardiogram Location: [facility] Height: 172.72 cm Weight: 80.74 kg BSA: 1.95 m2 Heart Rate: bpm BP: 105 / 56 mmHg Trim Setter Helper: YR/MARISSA Referring MD: Rodríguez Palacios MD Snapper On: Robert Merritt MD Symptoms: syncope Study Quality: Fair ECG Rhythm: Sinus Conclusions: - 1. Normal LV systolic function with pseudonormal filling pattern 2. Normal cardiac valvular Doppler 3. Normal RV systolic pressure 4. No pericardial effusion Findings Left Ventricle Normal left ventricular size, thickness, and systolic function. The visually estimated ejection fraction is between 55-60%. Spectral Doppler is indicative of a pseudonormal filling pattern. E/E prime ratio is between 8 and 15 consistent with indeterminate filling pressures. Right Ventricle Normal right ventricular cavity size and systolic function. Atria The left atrium is normal in size. There is no evidence of interatrial shunt. The right atrium is normal in size. Aortic Valve There is mild calcification of the aortic valve. There is no aortic valve stenosis. There is no aortic valve regurgitation. Mitral Valve Normal mitral valve structure and function. There is mild mitral annular calcification. There is trace mitral valve regurgitation. There is no mitral valve stenosis. Pulmonic Valve The pulmonic valve was not well visualized. Tricuspid Valve Likely normal tricuspid valve structure and function. There is trace tricuspid valve regurgitation. The right ventricular systolic pressure is normal. The right ventricular systolic pressure is 26 mmHg. Normal right atrial pressure. There is no evidence of pulmonary hypertension. Great Vessels All visible segments of the aorta are normal in size. The pulmonary artery was not well visualized. Venous The inferior vena cava is normal in size and collapses greater than 50% with inspiration. Pericardium/Pleural There is no evidence of pericardial effusion. Prior Study Comparison No prior study available for comparison. Measurements 2D Linear Measurements IVSd: 1.07 0.6-0.9/0.6-1.0 cm LVIDd: 4.58 3.9-5.3/4.2-5.9 cm LVIDd Index: 2.35 2.4-3.2/2.2-3.1 cm/m2 LVIDs: 3.01 2.0-3.6 cm LVPWd: 1.04 0.7-1.1 cm Ao Root: 3.20 2.1-3.5 cm LA Diam: 3.00 2.7-3.8/3.0-4.0 cm LAIDs Index: 1.54 1.5-2.3 cm/m2 LV Mass: 211.48 67-162/88-224 g LV Mass Index: 108.45 43-95/49-115 g/m2 LVOT Diam: 2.00 3.0+(-)1.3 cm 2D Systolic Function EF 4C: 58.50 >55% EF 2C: 53.10 >55% Mitral Valve MV Pk E: 1.08 MV PK A: 0.92 MV Decel Time: 179.00 E/A: 1.20 E'Lateral: 9.79 E'Medial: 6.96 E/E' Med: 15.50 E/E' Lat: 11.00 PHT: 52.00 MVA PHT: 4.23 Decel [place]: 6.01 Aortic Valve AoV Pk G[place]: 1.72 AoV Mn [place]: 1.22 AoV VTI: 0.42 AoV Pk Grad: 12.00 Aov Mn Grad: 7.00 AMAURY Cont.VTI: 1.76 LVOT LVOT Pk [place]: 1.09 LVOT Mn [place]: 0.68 LVOT VTI: 0.24 LVOT Pk Grad: 5.00 LVOT Mn Grad: 2.00 LVOT Diam: 2.00 LVOT Area: 3.14 Diastolic Function MV Pk E: 1.08 MV Pk A: 0.92 E/A: 1.20 E'Medial: 6.96 E/E' Med: 15.50 E' Laterial: 9.79 E/E' Lat: 11.00 Tricuspid Valve TR Pk [place]: 2.39 TR Pk Grad: 23.00 RA Press: 3.00 RVSP: 26.00 Great Vessels Aorta Ao Root-2D: 3.20 2.0-3.7 cm Ao Asc: 3.10 2.1-3.4 cm Ao Arch: 2.70 Updated in Other Vendor System with Status of Final Robert Merritt MD electronically signed on 03/23/2021 3:10:12 PM with status of Final
[2021-03-23] MEDS: Dextrose 5 % and 0.45 % NaCl 1,000 ML 100 ML IVCONT ×2 (08:47→18:20)
[2021-03-23] MEDS: Atorvastatin Calcium 80 MG TABLET PO (08:47)
[2021-03-23] MEDS: Acetaminophen 325 MG TABLET 650 MG PO ×2 (08:56→17:44)
--- NOTE | 2021-03-23 09:03 | MHC.CM.PN ---
CM met with Patient at bedside and spoke with /Julio @ [phone] with the assist of Telephonic Croatian Translation. Patient lives in [place] with her and 19 year old Daughter. Patient is in [place], visiting her Son and [id number]. Patient states that her PCP is DR. Garza in [place]. Patient has both a cane and walker and her goal is to return home, likely no services. GUILLERMINA has initiated and will follow for dc planning.
[2021-03-23] MEDS: Fluticasone Propionate 100 MCG BLST.W.DEV 1 PUFF INHALE ×2 (09:12→20:57)
--- NOTE | 2021-03-23 10:08 | HO.PM.IMPN ---
Subjective Subjective Date of Service: 03/23/21 Interval History: still nasuea Cardiovascular Cardiovascular: Reports no additional cardiovascular complaints Respiratory Respiratory: Reports no additional respiratory complaints Physical Exam Vital Signs: Vital Signs: Last Vital Signs Temp 97.8 F 03/23/21 07:29 Pulse 60 03/23/21 07:29 Resp 17 03/23/21 07:29 BP 160/87 H 03/23/21 07:29 Pulse Ox 96 03/23/21 07:29 Body Mass Index 27.0 General: AO X 3, no acute distress Resp: CTA bilateral CVS: S1,S2,RRR GI: soft, non tender, non distended Neuro: motor grossly intact Psych: appropriate affect Objective Data Current Medications Generic Name Dose Route Start Last Admin Trade Name Freq PRN Reason Stop Dose Admin Acetaminophen 650 mg 03/22/21 00:45 03/23/21 08:56 Acetaminophen 325 Mg Tablet PO 650 mg Q6H PRN Administration Pain, Mild (Pain Scale 1-3) Atorvastatin Calcium 80 mg 03/23/21 09:00 03/23/21 08:47 Atorvastatin Calcium 80 Mg Tablet PO 80 mg DAILY JEANA Administration Fluticasone Propionate 1 puff 03/22/21 20:00 03/23/21 09:12 Fluticasone Propionate 100 Mcg Blst.W.Dev INHALE 1 puff RBID JEANA Administration Heparin Sodium (Porcine) 5,000 unit 03/22/21 00:45 03/23/21 08:48 Heparin Sodium,Porcine 5,000 Unit/Ml Vial SUBCUT 5,000 unit Q8H JEANA Administration Dextrose/Sodium Chloride 1,000 mls @ 100 mls/hr 03/22/21 00:45 03/23/21 08:47 D51/2ns IVCONT 100 mls/hr .Q10H JEANA Administration Levothyroxine Sodium 125 mcg 03/23/21 09:00 03/23/21 05:55 Levothyroxine Sodium 125 Mcg Tablet PO 125 mcg DAILY JEANA Administration Melatonin 6 mg 03/22/21 00:45 03/22/21 22:02 Melatonin 3 Mg Tablet PO 6 mg BEDTIME PRN Administration Insomnia Morphine Sulfate 2 mg 03/22/21 15:09 03/22/21 16:50 Morphine Sulfate 2 Mg/Ml Cartridge IVPUSH 2 mg Q3H PRN Administration Pain, Moderate (Pain Scale 4-6 Pharmacy Consult 1 each 03/21/21 22:58 Consult Rx Perform Med Rec MISCELLANE ONCE PRN Consult order Sodium Chloride 3 ml 03/22/21 08:00 03/23/21 08:48 0.9 % Sodium Chloride Flush 3 Ml Syringe IVFLUSH Not Given QSHIFT JEANA Labs CBC & Chem 7: 03/23/21 05:55 03/23/21 05:55 Labs: Laboratory Results - last 24 hr 03/23/21 03/23/21 05:55 05:55 WBC 7.2 RBC 4.14 L Hgb 12.6 Hct 38.4 MCV 92.8 MCH 30.4 MCHC 32.8 RDW 12.6 Plt Count 252 MPV 10.1 Absolute Nucleated RBC 0.000 Nucleated RBC % (auto) 0.0 Sodium 142 Potassium 3.9 Chloride 109 H Carbon Dioxide 24 Anion Gap 13 BUN 10 Creatinine 0.93 Estim Creat Clear Calc 74.4 Estimated GFR > 60 Fasting Glucose 138 H Calcium 9.4 D Microbiology Microbiology Results: Microbiology 03/22/21 00:14 Blood Culture - Preliminary Blood - Venous No growth after 24 hours. 03/22/21 00:14 Blood Culture - Preliminary Blood - Venous No growth after 24 hours. Quality Stroke Does the patient have a stroke diagnosis?: No VTE Prior VTE?: No VTE Risk Level:: Medical - moderate - high VTE Device Contraindication: Treatment Not Indicated VTE Drug Contraindication: N/A - Med Ordered Assessment and Plan (1) PASCALE (acute kidney injury): Status: Acute Assessment and Plan: 55F presented with n/v pascale gastroenteritis complicated by pascale, syncope pascale resolved still unable to tolerate po continue ivf no evidence of bacterial infection, zosyn dced hyopthyroid synthroid hld statin htn holding hayley-i for pascale
[2021-03-23] MEDS: Morphine Sulfate 2 MG/ML CARTRIDGE IVPUSH (18:19)
[2021-03-23] MEDS: Melatonin 3 MG TABLET 6 MG PO (23:21)
[2021-03-24 04:00] VITALS: BP 119/67; PULSE 64; RESP 18; TEMP 37.1; O2SAT 98
[2021-03-24] MEDS: Dextrose 5 % and 0.45 % NaCl 1,000 ML 100 ML IVCONT (05:08)
[2021-03-24 07:29] LABS: Hemoglobin 13.1 g/dl (12.0-16.0); Mean Corpuscular HGB Conc 33.6 g/dl (31.0-35.0); Mean Corpuscular Hemoglobin 30.5 pg (27.0-33.0); Mean Corpuscular Volume 90.7 fL (80-98); Mean Platelet Volume 10.5 fL (9.4-12.3); Platelet Count 246 X10*3/uL (160-400); Red Cell Distribution Width 12.4 % (11.0-16.0); White Blood Count 8.1 X10*3/uL (4.8-10.8)
[2021-03-24 07:53] VITALS: BP 178/79; PULSE 77; RESP 20; TEMP 36.8; O2SAT 98
[2021-03-24 07:56] LABS: Anion Gap 15 (12-20); Blood Urea Nitrogen 11 mg/dL (9-16); Calcium 9.6 mg/dL (8.4-10.2); Carbon Dioxide 21 mmol/L (22-29); Chloride 108 mmol/L (96-108); Creatinine Clr Calc Pharmacy 82.4; Estimated Glomerular Filt Rate > 60; Glucose Fasting 143 mg/dL (60-99); Potassium 3.7 mmol/L (3.3-5.1); Sodium 140 mmol/L (135-145)
[2021-03-24] MEDS: Heparin Sodium,Porcine 5,000 UNIT/ML VIAL 5000 UNIT SUBCUT (08:16)
[2021-03-24] MEDS: Acetaminophen 325 MG TABLET 650 MG PO (08:16)
[2021-03-24] MEDS: Levothyroxine Sodium 125 MCG TABLET PO (08:16)
[2021-03-24] MEDS: 0.9 % Sodium Chloride Flush 3 ML SYRINGE IVFLUSH (08:16)
[2021-03-24] MEDS: Atorvastatin Calcium 80 MG TABLET PO (08:17)
--- NOTE | 2021-03-24 08:58 | PM.DS ---
DS: Providers Provider Date of Service: 03/24/21 Date of admission: 03/22/21 00:45 Primary care physician: Unknown Physician DS: Diagnosis Discharge Diagnosis (1) PASCALE (acute kidney injury): Status: Acute DS: Medications Discharge Medications Home Medications: Home Medications Medication Instructions Recorded Confirmed Flovent HFA 2 puff INHALATION BID 03/22/21 03/22/21 fluticasone propionate 1 - 2 spray INTRANASAL DAILY 03/22/21 03/22/21 levothyroxine 1 tab PO DAILY 03/22/21 03/22/21 lisinopril 1 tab PO DAILY 03/22/21 03/22/21 rosuvastatin 1 tab PO DAILY 03/22/21 03/22/21 DS: Summary Hospital Course Hospital Course: patient was admitted for acute kidney injury secondary to dehydration from nausea vomiting from gastroenteritis. She was noted to have leukocytosis and tachycardia initially thought to be due to sepsis she was given Zosyn, although this likely was dehydration as patient significantly improved with hydration. Her renal function, leukocytosis, and symptoms resolved. she was able to tolerate solid diet. patient will be discharged home. Time Spent with Patient Time attestation: Total time spent providing and/or coordinating discharge services: Discharge coordination time: Greater than 30 minutes Quality: Stroke Does the patient have a stroke diagnosis?: No Physical Exam Vital Signs: Vital Signs: Last Vital Signs Temp 98.3 F 03/24/21 07:53 Pulse 77 03/24/21 07:53 Resp 20 03/24/21 07:53 BP 178/79 H 03/24/21 07:53 Pulse Ox 98 03/24/21 07:53 Body Mass Index 27.0 DS: Data Data Completed and Pending Labs on day of discharge: Laboratory Results - last 24 hr 03/24/21 03/24/21 06:18 06:18 WBC 8.1 RBC 4.30 Hgb 13.1 Hct 39.0 MCV 90.7 MCH 30.5 MCHC 33.6 RDW 12.4 Plt Count 246 MPV 10.5 Absolute Nucleated RBC 0.000 Nucleated RBC % (auto) 0.0 Sodium 140 Potassium 3.7 Chloride 108 Carbon Dioxide 21 L Anion Gap 15 BUN 11 Creatinine 0.84 Estim Creat Clear Calc 82.4 Estimated GFR > 60 Fasting Glucose 143 H Calcium 9.6 Preliminary micro results at discharge 03/22/21 00:14 Blood Culture - Preliminary Blood - Venous No growth after 48 hours. 03/22/21 00:14 Blood Culture - Preliminary Blood - Venous No growth after 48 hours. Discharge Plan Discharge Patient Disposition: Home, Self-Care Discharge Diagnosis: pascale Referrals: Physician,Unknown [Primary Care Provider] - 1 Week Discharge Medications: Continued lisinopril 20 mg tablet 1 tab PO DAILY RF: 0 Flovent HFA 44 mcg/actuation HFA aerosol inhaler 2 puff inhalation BID RF: 0 fluticasone propionate 50 mcg/actuation spray,suspension 1 - 2 spray intranasal DAILY RF: 0 rosuvastatin 40 mg tablet 1 tab PO DAILY RF: 0 levothyroxine 125 mcg tablet 1 tab PO DAILY RF: 0 Discharge Orders: Discharge Order (Routine); Ordered 03/24/21 Ordered By: Eduard Santoyo Diet: advance to usual diet Activity on Discharge: As tolerated Stand Alone Forms: Patient Portal Discharge page Care Plan Goals: recovery Health Concerns: psacale, gastroenteritis Plan of Treatment: continue oral hydration Assessment: see above
--- NOTE | 2021-03-24 09:01 | MHC.CM.PN ---
PT CLEARED FOR DC HOME TODAY WITH NO SERVICES. FAMILY TO TRANSPORT
== END 2021-03-24 13:00 | disposition home or self-care (01) | DRG 392 ==
LOC: HO.ED 03-22 00:15 → HO.EDOVER 03-22 00:58 → HO.IMC 03-22 15:32
PROVIDERS: Physician Assistant; Admitting Provider Hospitalist; Emergency Provider Student in an Organized Health Care Education/Training Program; Visit Provider Internal Medicine
DX: K52.9 Noninfective gastroenteritis and colitis, unspecified (principal); N17.9 Acute kidney failure, unspecified; E87.2 Acidosis; E86.0 Dehydration; E03.9 Hypothyroidism, unspecified; F17.210 Nicotine dependence, cigarettes, uncomplicated; E78.5 Hyperlipidemia, unspecified; D72.829 Elevated white blood cell count, unspecified; Z71.6 Tobacco abuse counseling; Z20.822 Contact with and (suspected) exposure to COVID-19; Z88.5 Allergy status to narcotic agent; Z88.6 Allergy status to analgesic agent; Z79.51 Long term (current) use of inhaled steroids; Z79.890 Hormone replacement therapy; Z79.899 Other long term (current) drug therapy
CPT/HCPCS: 36415; 70450; 71250; 74176; 80048; 80076; 80307; 81001; 82077; 83605; 83690; 83735; 84484; 85025; 85027; 87040; 87635; 93005; 93306; 99285; J2270; J2405; J2543